=== PATIENT | male | born 1985 ===

== ENCOUNTER → 2020-03-17 | Outpatient (CLI) | payer OTHER | LOC: LAB SHORT 08:05 → PLD 08:05 | DX: D22.5 Melanocytic nevi of trunk (principal); D22.10 Melanocytic nevi of unspecified eyelid, including canthus | CPT/HCPCS: 88305 ==

== ENCOUNTER → 2020-06-07 | Outpatient (CLI) | payer OTHER | END | disposition home or self-care (01) | LOC: LAB SHORT 08:04 | DX: L72.12 Trichodermal cyst (principal) | CPT/HCPCS: 88304 ==